=== PATIENT | male | born 1960 | race Caucasian/White ===

== ENCOUNTER 2016-09-25 07:52 | Day surgery (SDC) | payer OTHER ==
[2016-09-25] MEDS ORDERED: Lactated Ringers 1,000 ML IV SCH (08:00)
[2016-09-25] MEDS ORDERED: Propofol 200 MG/20 ML SDV IV ONE (09:45)
--- NOTE | 2016-09-25 10:15 | PCM.OPNOTE ---
- General Post-Op/Procedure Note Date of Surgery/Procedure: 09/25/16 Operative Procedure(s): c scope with hot loop and cold forcep biopsy Findings: ascending colon polyp descending colon polyp sigmoid diverticulosis ? colitis sigmoid colon Pre Op Diagnosis: personal hx of colon polyp Post-Op Diagnosis: ascending colon polyp. descending colon polyp. sigmoid diverticulosis. ? colitis sigmoid colon Anesthesia Technique: [facility] [place] Primary Surgeon: Romain Hines Anesthesia Provider: Valeriy Palacio Pathology: ascending colon polyp descending colon polyp ? colitis sigmoid colon Complications: None Condition: Good Free Text/Narrative:: see dictation
[2016-09-25 11:12] VITALS: BP 133/81
--- NOTE | 2016-09-25 15:06 | OR ---
DATE OF OPERATION: 09/25/2016 SURGEON: Romain Hines MD PROCEDURE PERFORMED: Colonoscopy with hot loop and cold forceps biopsy. PREOPERATIVE DIAGNOSIS: Personal history of adenomatous polyps. POSTOPERATIVE DIAGNOSES: As follows: Polyp ascending colon, polyp x2 of the descending colon, and sigmoid diverticulosis and what appears to be some colitis in the sigmoid colon. INDICATIONS FOR PROCEDURE: This is a 56-year-old white male, who presents for followup colonoscopy. He has a personal history of adenomatous polyps. He was offered and accepted same. DESCRIPTION OF OPERATION: After an excellent IV sedation was administered, digital rectal exam was performed. There was a slight narrowing of the anal canal, otherwise it was unremarkable. Flexible colonoscope was advanced without difficulty to the cecum. The prep was excellent. The following findings were noted. Ascending colon, a small polypoid lesion, biopsied with cold forceps biopsies and sent for permanent. Transverse colon was unremarkable. Descending colon; in the proximal descending colon, 2 polyps with lesions, biopsied with hot loop snare. They were within 2 cm of each other and were submitted in a single container. The sigmoid demonstrated some mild diverticulosis and at the distal portion of the sigmoid, there was a patchy area of red-appearing mucosa. Biopsies were taken. This did not have the appearance of a polyp. Rectum was unremarkable. The colon was deflated, scope was removed. The patient tolerated the procedure well and was taken to recovery room in good condition. /[id number] /BREANNAL
== END 2016-09-25 11:05 | disposition home or self-care (01) ==
LOC: FB.SDS 07:52
PROVIDERS: ATTEND Surgery
PROC: 0DJD8ZZ Inspection of Lower Intestinal Tract, Via Natural or Artificial Opening Endoscopic (ICD-10-PCS; principal; 2016-09-25)
DX: Z12.11 Encounter for screening for malignant neoplasm of colon (principal); D12.2 Benign neoplasm of ascending colon; D12.4 Benign neoplasm of descending colon; Z86.010 Personal history of colon polyps; Z79.899 Other long term (current) drug therapy; I10 Essential (primary) hypertension; F32.9 Major depressive disorder, single episode, unspecified; F41.9 Anxiety disorder, unspecified; F17.200 Nicotine dependence, unspecified, uncomplicated
CPT/HCPCS: 45378; 88305; J2704; J7120

== ENCOUNTER 2017-06-11 06:41 | Day surgery (SDC) | payer BC, OTHER ==
[2017-06-11] MEDS ORDERED: Lactated Ringers 1,000 ML IV SCH (06:45)
[2017-06-11] MEDS ORDERED: Sodium Chloride 0.9% 10 ML Syringe FLUSH PRN (06:45)
[2017-06-11] MEDS ORDERED: Lidocaine 1% 30 ML SDV INJECT ONE (08:00)
[2017-06-11] MEDS ORDERED: Bupivacaine 0.5% 30 ML SDV ONE (08:00)
[2017-06-11] MEDS ORDERED: Rocuronium 100 MG/10 ML MDV IV ONE (08:00)
[2017-06-11] MEDS ORDERED: Lactated Ringers 1,000 ML IV ONE (08:00)
[2017-06-11] MEDS ORDERED: Midazolam 1 MG/ML 2 ML SDV IV ONE (08:00)
[2017-06-11] MEDS ORDERED: Albuterol 8 GM Inhaler INH ONE (08:00)
[2017-06-11] MEDS ORDERED: ePHEDrine 50 MG/ML SDV IV ONE (08:00)
[2017-06-11] MEDS ORDERED: Lidocaine 1% with EPINEPHrine 1:100,000 20 ML MDV ONE (08:00)
[2017-06-11] MEDS ORDERED: fentaNYL 100 MCG/2 ML SDV IV ONE (08:00)
[2017-06-11] MEDS ORDERED: Ondansetron 4 MG/2 ML SDV IVPUSH ONE (08:00)
[2017-06-11] MEDS ORDERED: Propofol 200 MG/20 ML SDV IV ONE (08:00)
[2017-06-11] MEDS ORDERED: Succinylcholine 200 MG/10 ML MDV IV ONE (08:00)
--- NOTE | 2017-06-11 08:40 | PCM.OPNOTE ---
- General Post-Op/Procedure Note Date of Surgery/Procedure: 06/11/17 Operative Procedure(s): excisional bx of left lower ext post skin lesion Findings: 1.5 x 2 cm skin lesion post left calf Pre Op Diagnosis: left lower ext skin lesion Post-Op Diagnosis: same Anesthesia Technique: General ET Tube, Local (10 ml 1 % lido with epi/0.5% buvipicaine) Primary Surgeon: Romain Hines Anesthesia Provider: Marely Ayala Pathology: 1.5 x 2 cm lesion with 5 mm margin EBL in mLs: 1 Complications: None Condition: Good Free Text/Narrative:: see dictation
[2017-06-11] MEDS ORDERED: Acetaminophen/Codeine 300-30 MG Tab PO PRN (09:06)
[2017-06-11 11:28] VITALS: BP 118/66
--- NOTE | 2017-06-11 14:08 | OR ---
DATE OF OPERATION: 06/11/2017 SURGEON: Romain Hines MD PROCEDURE PERFORMED: Excisional biopsy of left lower extremity posterior skin lesion. PREOPERATIVE DIAGNOSIS: Skin lesion, left lower extremity, posterior calf. POSTOPERATIVE DIAGNOSIS: Skin lesion, left lower extremity, posterior calf. INDICATIONS FOR PROCEDURE: This is a 57-year-old white male who has had a longstanding history of a skin lesion on the back of his calf. It has started to bleed. It really has not changed in size. He was offered and accepted excisional biopsy. DESCRIPTION OF PROCEDURE: After an excellent general anesthetic was administered, the patient was placed in the prone position. The area was prepped and draped in the usual sterile manner. 10 mL of 1:1 mixture of 1% lidocaine with epinephrine 0.5% bupivacaine was used to infiltrate the area. This was done after marking out a 5-mm margin around the lesion. An elliptical excision was then made. Specimen was dissected off the posterior calf using electrocautery. The medial margin was marked. The skin was closed with interrupted 3-0 nylon. Dressing was applied. Needle, sponge, and instrument counts were reported as correct. The patient was taken to recovery room in a good condition. /[id number] /BREANNAL
== END 2017-06-11 10:28 | disposition home or self-care (01) ==
LOC: FB.SDS 06:41
PROVIDERS: ATTEND Surgery
DX: C44.719 Basal cell carcinoma of skin of left lower limb, including hip (principal); I10 Essential (primary) hypertension; F32.9 Major depressive disorder, single episode, unspecified; F41.9 Anxiety disorder, unspecified; F17.210 Nicotine dependence, cigarettes, uncomplicated
CPT/HCPCS: 11600; 88305; A9270; J0330; J2250; J2405; J2704; J3010; J7120

== ENCOUNTER 2022-07-25 10:00 | Observation (INO) | payer BC ==
[2022-07-25] MEDS ORDERED: Sodium Chloride 0.9% 10 ML Syringe FLUSH PRN (10:31)
[2022-07-25] MEDS ORDERED: Magnesium Citrate Solution 296 ML Bottle PO SCH (12:15)
[2022-07-25] MEDS: Enoxaparin 40 MG/0.4 ML Syringe SUBCUT SCH (12:20)
[2022-07-25] MEDS: Sodium Chloride 0.9% 1,000 ML IV SCH ×2 (12:30→19:54)
[2022-07-25] MEDS: Magnesium Oxide 400 MG Tab PO SCH (13:30)
[2022-07-25] MEDS: Potassium Chloride 20 MEQ Tab.ER PO SCH ×2 (13:30→19:59)
[2022-07-25] MEDS ORDERED: Sodium Chloride 0.9% 500 ML IV ONE (14:40)
[2022-07-26] MEDS: Sodium Chloride 0.9% 1,000 ML IV SCH ×2 (04:54→13:05)
[2022-07-26 08:26] LABS: ESTIMATED GFR 115 mL/min (>60)
[2022-07-26] MEDS ORDERED: Bisoprolol 5 MG Tab PO SCH (09:00)
[2022-07-26] MEDS ORDERED: Citalopram 20 MG Tab PO SCH (09:00)
[2022-07-26] MEDS: Magnesium Oxide 400 MG Tab PO SCH (09:16)
[2022-07-26] MEDS: Potassium Chloride 20 MEQ Tab.ER PO SCH ×3 (09:17→14:22)
[2022-07-26] MEDS ORDERED: Sodium Chloride 1 GM Tab PO SCH (09:30)
[2022-07-26] MEDS: Enoxaparin 40 MG/0.4 ML Syringe SUBCUT SCH (11:04)
[2022-07-26 16:26] VITALS: BP 143/77; PULSE 60
[2022-07-26 16:54] LABS: ESTIMATED GFR 109 mL/min (>60)
== END 2022-07-26 17:50 | disposition home or self-care (01) ==
LOC: FB.MS 10:07
PROVIDERS: ADMIT Family Medicine; ATTEND Family Medicine
DX: E87.1 Hypo-osmolality and hyponatremia (principal); E86.0 Dehydration; E83.42 Hypomagnesemia; E87.6 Hypokalemia; F10.10 Alcohol abuse, uncomplicated; I10 Essential (primary) hypertension; F41.9 Anxiety disorder, unspecified; F17.210 Nicotine dependence, cigarettes, uncomplicated; R63.4 Abnormal weight loss; R79.89 Other specified abnormal findings of blood chemistry; Z79.899 Other long term (current) drug therapy
CPT/HCPCS: 36415; 71046; 80048; 80053; 83735; 83930; 83935; 84295; 84300; 84443; 85025; 96372; A9270-GY; G0378; J1650; J7030; J7040

== ENCOUNTER 2025-04-19 20:27 | Emergency (ER) | payer BC ==
[2025-04-20 02:05] VITALS: BP 120/76; PULSE 60
== END 2025-04-19 21:31 | disposition left against medical advice (07) ==
LOC: FB.ED 20:27
DX: F10.129 Alcohol abuse with intoxication, unspecified (principal); I95.9 Hypotension, unspecified; Z79.899 Other long term (current) drug therapy
CPT/HCPCS: 99284; 99285